=== PATIENT | female | born 1955 | race Native Hawaiian/Other Pacific Islander ===

== ENCOUNTER 2020-12-19 09:03 | Outpatient (CLI) | payer OTHER | END 2020-12-19 18:58 | disposition home or self-care (01) | LOC: RAD 09:03 | PROVIDERS: ATTEND Nurse Practitioner Family | DX: M25.571 Pain in right ankle and joints of right foot (principal); M79.671 Pain in right foot ==

== ENCOUNTER 2021-08-20 16:35 | Emergency (ER) | payer OTHER ==
[~2021-08-20] VITALS: Ht 185.4 cm; Wt 117.9 kg
[2021-08-20 17:15] LABS: PLATELET COUNT 140 K/uL (152-353)
[2021-08-20 19:35] VITALS: BP 127/66; TEMP 97.6
== END 2021-08-20 19:35 | disposition home or self-care (01) ==
LOC: ED 16:35
PROVIDERS: Emergency Medicine Emergency Medical Services
DX: I10 Essential (primary) hypertension (principal); R51.9 Headache, unspecified; F17.210 Nicotine dependence, cigarettes, uncomplicated
CPT/HCPCS: 80048; 84484; 85027; 93005; 96360; 96374; 96376; 99284; J0360

== ENCOUNTER 2022-03-07 12:04 | Outpatient (CLI) | payer OTHER | END 2022-03-07 19:50 | disposition home or self-care (01) | LOC: RAD 12:04 | PROVIDERS: ATTEND Nurse Practitioner Family | DX: M79.671 Pain in right foot (principal); M25.571 Pain in right ankle and joints of right foot ==